=== PATIENT | female | born 1995 | race African-American/Black ===

== ENCOUNTER 2017-08-30 11:32 | Emergency (ER) | payer MEDICAID ==
[~2017-08-30] VITALS: Ht 167.6 cm; Wt 94.0 kg
[~2017-08-30 11:32] MED LIST: NO HOME MEDS; OMEP20CA4 PO; ZOF4T PO
[2017-08-30] MEDS ORDERED: PENI250T2 PO (12:15)
[2017-08-30] MEDS ORDERED: METH4TAB3 PO (12:15)
[2017-08-30] MEDS ORDERED: LIDO20SO16 PO (12:15)
[2017-08-30 12:19] VITALS: BP 130/70
== END 2017-08-30 12:20 | disposition home or self-care (01) ==
LOC: ER 11:32
DX: J02.0 Streptococcal pharyngitis (principal); Z79.899 Other long term (current) drug therapy; Z98.890 Other specified postprocedural states
CPT/HCPCS: 99283

== ENCOUNTER 2017-09-02 10:30 | Emergency (ER) | payer MEDICAID ==
[~2017-09-02] VITALS: Ht 167.6 cm; Wt 110.0 kg
[~2017-09-02 10:30] MED LIST changes: +LIDO20SO16 PO; +METH4TAB3 PO; +PENI250T2 PO
[2017-09-02 11:02] VITALS: BP 136/73
== END 2017-09-02 12:18 | disposition home or self-care (01) ==
LOC: ER 10:30
DX: Z02.89 Encounter for other administrative examinations (principal)
CPT/HCPCS: 99281